=== PATIENT | male | born 1990 | race Caucasian/White ===

== ENCOUNTER 2020-12-30 04:44 | Emergency (ER) | payer BC ==
[~2020-12-30] VITALS: Ht 182.9 cm; Wt 83.9 kg
--- NOTE | 2020-12-30 04:50 | NUR ---
PT BIBSELF C/O SORE THROAT AND PAIN SWALLOWING X1DAY. PT AAOX4 BREATHING EVENLY AND UNLABORED. PT SKIN WARM, DRY, AND UNLABORED. UPON ASSESSMENT, PT THROAT IS RED AND SWOLLEN. MD AT BEDSIDE FOR EVAL, SOME PAIN ON PALPATION. PT ATTACHED TO MONITOR AND POX. CALL LIGHT WITHIN REACH
[2020-12-30] MEDS ORDERED: DEXAMETHASONE SOD PHOSPHATE 10 MG/ML VIAL IV ONE (05:00)
[2020-12-30] MEDS ORDERED: DEXAMETHASONE SOD PHOSPHATE 10 MG/ML VIAL ONE (05:03)
--- NOTE | 2020-12-30 05:09 | NUR ---
STREP SWAB SENT TO LAB
--- NOTE | 2020-12-30 05:53 | NUR ---
Patient discharged to home in stable condition. Written and verbal after care instructions given. Patient verbalizes understanding of instruction.PT ambulatory with a steady gait
[2020-12-30 05:54] VITALS: BP 135/70
== END 2020-12-30 05:53 | disposition home or self-care (01) ==
LOC: ER 04:49
DX: J02.8 Acute pharyngitis due to other specified organisms (principal)
CPT/HCPCS: 87070; 87880; 99283; J1100; 86403-TC